=== PATIENT | male | born 1940 | race Caucasian/White ===

== ENCOUNTER 2022-07-15 10:01 | Outpatient (CLI) | payer MEDICARE, BC | END 2022-07-15 10:02 | disposition home or self-care (01) | LOC: SCSRAD 10:01 | PROVIDERS: ATTEND Internal Medicine | DX: J40 Bronchitis, not specified as acute or chronic (principal) | CPT/HCPCS: 71046 ==

== ENCOUNTER 2022-10-07 08:05 | Outpatient (CLI) | payer MEDICARE, BC | END 2022-10-07 08:06 | disposition home or self-care (01) | LOC: SCSRAD 08:05 | PROVIDERS: ATTEND Internal Medicine | DX: R05.3 Chronic cough (principal) | CPT/HCPCS: 36415; 71046; 80053; 80061; 82043; 83036; 84153; 84154; 84443; 85025 ==

== ENCOUNTER 2023-07-16 10:13 | Outpatient (CLI) | payer OTHER | END 2023-07-16 10:14 | disposition home or self-care (01) | LOC: EKG 10:13 | PROVIDERS: ATTEND Chiropractor | DX: I48.11 Longstanding persistent atrial fibrillation (principal); I07.1 Rheumatic tricuspid insufficiency; R93.1 Abnormal findings on diagnostic imaging of heart and coronary circulation | CPT/HCPCS: 93005; 93010; 93306 ==